=== PATIENT | female | born 1940 | race Caucasian/White ===

== ENCOUNTER 2017-10-25 10:17 | Emergency (ER) | payer OTHER ==
[~2017-10-25] VITALS: Ht 170.2 cm; Wt 73.0 kg
[2017-10-25 10:20] VITALS: BP 151/69; PULSE 52; RESP 14; TEMP 99; O2SAT 99
[2017-10-25] MEDS ORDERED: NIAC500T5 PO (10:44)
[2017-10-25] MEDS ORDERED: BIOTCAP PO (10:44)
[2017-10-25] MEDS ORDERED: PLAQ200T PO (10:44)
[2017-10-25] MEDS ORDERED: PRAV40TA2 PO (10:44)
[2017-10-25] MEDS ORDERED: TOPR50TA PO (10:44)
[2017-10-25] MEDS ORDERED: CALC1TAB34 PO (10:44)
[2017-10-25] MEDS ORDERED: LEVO25TA4 PO (10:44)
[2017-10-25] MEDS ORDERED: PRED5TAB PO (10:44)
[2017-10-25] MEDS ORDERED: ASPI-516 CHEW (10:44)
[2017-10-25] MEDS ORDERED: FISH OIL PO (10:44)
--- NOTE | 2017-10-25 11:13 | PD ---
HPI Chief Complaint: GI Complaint Time Seen by Provider: 11:00 Travel History International Travel<30 days: No Contact w/Intl Traveler<30days: No Traveled to known affect area: No History of Present Illness HPI 77 year old female presents to the emergency department for evaluation of constipation. Patient states her last normal BM was 10/06. She has had small bowel movements since, but states they are not normal for her. She does report some mild bright red bleeding, but states this is from her hemorrhoid and is not new for her. Patient states she'll have intermittent upper abdominal pain. She denies any pain at this time. She denies any nausea or vomiting. Patient reports history of bladder left, but no other abdominal surgeries. Patient has tried MiraLAX, took laxative and she did an enema yesterday without relief. Patient denies any history of this. She states she is always had some mild constipation, but never like this. [place] is from [place]. Moderate severity. No exacerbating or alleviating factors. PFSH Past Medical History High Cholesterol: Yes Diminished Hearing: No Thyroid Disease: Yes (HYPOTHYROIDISM ) Menopausal: Yes Past Surgical History Genitourinary Surgery: Yes (URINARY BLADDER ) Social History Alcohol Use: No Tobacco Use: No Substance Use: No Allergies-Medications (Allergen,Severity, Reaction): Coded Allergies: No Known Allergies (Unverified , 10/25/17) Reported Meds & Prescriptions Reported Meds & Active Scripts Active Golytely 236 gm (Polyethylene Glycol/Electrolytes) 4,000 Ml Soln 4,000 Ml PO ONCE Reported Biotin 5 Mg Cap 5 Mg PO DAILY Toprol XL (Metoprolol Succinate) 50 Mg Tab 50 Mg PO DAILY Pravastatin 40 Mg Tab 40 Mg PO DAILY Niacin 500 Mg Tab 500 Mg PO DAILY Levothyroxine (Levothyroxine Sodium) 25 Mcg Tab 25 Mcg PO DAILY [Fish Oil ] 1,000 Mg PO DAILY Caltrate 600+D Plus Minerals (Calcium Carbonate-Vitamin D W/Minerals) 600-800 Mg -Unit Tab 1 Tab PO BID Aspirin 81 Mg Chew 81 Mg CHEW DAILY Prednisone 5 Mg Tab 5 Mg PO DAILY Plaquenil (Hydroxychloroquine Sulfate) 200 Mg Tab 200 Mg PO DAILY Take with food Review of Systems Except as stated in HPI: all other systems reviewed are Neg Physical Exam Narrative GENERAL: Well-nourished, well-developed female patient, afebrile. SKIN: Focused skin assessment warm/dry. HEAD: Normocephalic. Atraumatic. EYES: No scleral icterus. No injection or drainage. NECK: Supple, trachea midline. No JVD or lymphadenopathy. CARDIOVASCULAR: Regular rate and rhythm without murmurs, gallops, or rubs. RESPIRATORY: Breath sounds equal bilaterally. No accessory muscle use. Lungs sounds are clear to auscultation. GASTROINTESTINAL: Abdomen soft, non-tender, nondistended. MUSCULOSKELETAL: No cyanosis, or edema. BACK: Nontender without obvious deformity. No CVA tenderness. RECTAL EXAM: No masses or tenderness. No stool in rectal vault, no evidence of fecal impaction. There is a small amount my finger after rectal exam which was Hemoccult negative. This exam was done with RN at bedside. Data Data Last Documented VS Vital Signs Date Time Temp Pulse Resp B/P (MAP) Pulse Ox O2 Delivery O2 Flow Rate FiO2 10/25/17 12:29 (96) 100 Room Air 10/25/17 12:29 51 15 10/25/17 10:20 99.0 Orders Orders Complete Blood Count With Diff (10/25/17 11:14) Comprehensive Metabolic Panel (10/25/17 11:14) Lipase (10/25/17 11:14) Prothrombin Time / Inr (Pt) (10/25/17 11:14) Act Partial Throm Time (Ptt) (10/25/17 11:14) Urinalysis - C+S If Indicated (10/25/17 11:14) Ct Abd/Pel W Iv Contrast(Rout) (10/25/17 11:14) Iv Access Insert/Monitor (10/25/17 11:14) Ecg Monitoring (10/25/17 11:14) Oximetry (10/25/17 11:14) Sodium Chloride 0.9% Flush (Ns Flush) (10/25/17 11:15) Sodium Chlor 0.9% 1000 Ml Inj (Ns 1000 M (10/25/17 13:15) Iodixanol 320 Inj (Rad Ct) (Visipaque 32 (10/25/17 13:22) Labs Laboratory Tests Test 10/25/17 11:20 White Blood Count 5.3 TH/MM3 Red Blood Count 3.72 MIL/MM3 Hemoglobin 9.5 GM/DL Hematocrit 29.2 % Mean Corpuscular Volume 78.6 FL Mean Corpuscular Hemoglobin 25.4 PG Mean Corpuscular Hemoglobin Concent 32.3 % Red Cell Distribution Width 16.8 % Platelet Count 216 TH/MM3 Mean Platelet Volume 7.8 FL Neutrophils (%) (Auto) 53.9 % Lymphocytes (%) (Auto) 30.5 % Monocytes (%) (Auto) 13.9 % Eosinophils (%) (Auto) 1.2 % Basophils (%) (Auto) 0.5 % Neutrophils # (Auto) 2.9 TH/MM3 Lymphocytes # (Auto) 1.6 TH/MM3 Monocytes # (Auto) 0.7 TH/MM3 Eosinophils # (Auto) 0.1 TH/MM3 Basophils # (Auto) 0.0 TH/MM3 CBC Comment DIFF FINAL Differential Comment Prothrombin Time 11.2 SEC Prothromb Time International Ratio 1.1 RATIO Activated Partial Thromboplast Time 24.0 SEC Blood Urea Nitrogen 19 MG/DL Creatinine 1.36 MG/DL Random Glucose 89 MG/DL Total Protein 6.2 GM/DL Albumin 3.4 GM/DL Calcium Level 9.0 MG/DL Alkaline Phosphatase 55 U/L Aspartate Amino Transf (AST/SGOT) 17 U/L Alanine Aminotransferase (ALT/SGPT) 15 U/L Total Bilirubin 0.4 MG/DL Sodium Level 141 MEQ/L Potassium Level 3.6 MEQ/L Chloride Level 105 MEQ/L Carbon Dioxide Level 28.7 MEQ/L Anion Gap 7 MEQ/L Estimat Glomerular Filtration Rate 38 ML/MIN Lipase 188 U/L MDM Medical Decision Making Medical Screen Exam Complete: Yes Emergency Medical Condition: Yes Medical Record Reviewed: Yes Interpretation(s) ct abdomen/pelvis - CONCLUSION: 1. Stool filled, moderately dilated colon suggesting constipation. 2. 1.7 cm low attenuation lesion within the liver most compatible with a simple cyst. 3. Degenerative changes within the spine. Differential Diagnosis Constipation versus bowel obstruction versus mass versus diverticulitis Narrative Course 77-year-old female presents to the emergency department for evaluation of constipation. She reports a last normal bowel movement was on October 06. She denies any history of this. Rectal exam shows no evidence of fecal impaction. IV access established. CBC, CMP, lipase, PTT, PT/INR, UA, CT abdomen/pelvis with IV contrast are ordered and pending. CBC shows anemia hemoglobin 9.5, hematocrit 29.2. CMP shows elevated BUN and creatinine 19/1.36. Lipase is 188. Coags show no acute abnormality. CT abdomen/pelvis shows stool filled, moderately dilated colon suggesting constipation; 1.7 cm low attenuation lesion within the liver most compatible with a simple cyst; Degenerative changes within the spine. Patient will be discharged home prescription for GoLYTELY. I did discuss the case with my attending physician, Dr. Mota, who presents complaining and disposition. Patient is to follow up with herprimary care physician. She is to return here for any acute worsening of symptoms. The patient was discharged in stable condition with instructions, including return instructions and follow up instructions. [facility] Point of Care Internal Pos. & Neg. Controls: Passed Fecal Specimen Occult Blood: Negative Diagnosis Primary Impression: Constipation Qualified Codes: K59.00 - Constipation, unspecified Referrals: Primary Care Physician call for appointment Patient Instructions: Constipation (ED), General Instructions Additional Instructions: Take GoLYTELY as directed. Follow-up with your primary care physician. Return to the emergency department for any acute worsening of symptoms. Med/Other Pt SpecificInfo: Prescription(s) given Scripts Peg-Electrolytes (Golytely 236 gm) 4,000 Ml Soln 4000 ML PO ONCE for Bowel Cleanser, #1 CONTAINER 0 Refills Prov: Florence Montero 10/25/17 Disposition: 01 DISCHARGE HOME Condition: Stable Florence Montero Oct 25, 2017 11:13
[2017-10-25] MEDS ORDERED: SODIUM CHLORIDE 0.9% FLUSH 10 ML FLUSH IV FLUSH PRN (11:15)
[2017-10-25 11:29] LABS: AUTOMATED NEUTROPHIL # 2.9 TH/MM3 (1.8-7.7); BASOPHIL % 0.5 % (0.0-2.0); EOSINOPHIL # 0.1 TH/MM3 (0-0.4); EOSINOPHIL % 1.2 % (0.0-4.0); HEMATOCRIT 29.2 % (35.0-46.0); HEMO FLAGS DIFF FINAL; LYMPH % 30.5 % (9.0-44.0); LYMPHOCYTE # 1.6 TH/MM3 (1.0-4.8); MEAN CELL VOLUME 78.6 FL (80.0-100.0); MEAN CORPUSCULAR HEMOGLOBIN 25.4 PG (27.0-34.0); MEAN CORPUSCULAR HGB CONC 32.3 % (32.0-36.0); MONO % 13.9 % (0.0-8.0); NEUT % 53.9 % (16.0-70.0); PLATELET COUNT 216 TH/MM3 (150-450); RED BLOOD COUNT 3.72 MIL/MM3 (4.00-5.30); RED CELL DISTRIBUTION WIDTH 16.8 % (11.6-17.2); WHITE BLOOD COUNT 5.3 TH/MM3 (4.0-11.0)
[2017-10-25 11:41] LABS: ANION GAP 7 MEQ/L (5-15); AST (GOT) 17 U/L (15-37); BICARBONATE 28.7 MEQ/L (21.0-32.0); BLOOD UREA NITROGEN 19 MG/DL (7-18); CHLORIDE 105 MEQ/L (98-107); GLOMERULAR FILTRATION RATE 38 ML/MIN (>89); INTERNATIONAL NORMALIZED RATIO 1.1 RATIO; POTASSIUM 3.6 MEQ/L (3.5-5.1); PROTHROMBIN TIME - PATIENT 11.2 SEC (9.8-11.6); SODIUM (NA) 141 MEQ/L (136-145)
[2017-10-25 11:42] LABS: ALT (GPT) 15 U/L (10-53)
[2017-10-25 11:44] LABS: ALKALINE PHOSPHATASE 55 U/L (45-117); TOTAL BILIRUBIN ADULT 0.4 MG/DL (0.2-1.0)
[2017-10-25 12:29] VITALS: BP 129/68; PULSE 51; RESP 15; O2SAT 100
[2017-10-25] MEDS ORDERED: SODIUM CHLOR 0.9% 1000 ML INJ 1,000 ML IV ONE (13:15)
[2017-10-25] MEDS ORDERED: IODIXANOL 320 MG/ML 10 ML VIAL (for Rad CT) IVCONTRAST ONE (13:22)
--- NOTE | 2017-10-25 13:39 | RADRPT ---
EXAM DATE/TIME: 10/25/2017 13:13 [facility] COMPARISON: No previous studies available for comparison. INDICATIONS : Patient complains of constipation for 2 weeks IV CONTRAST: 50 cc Visipaque (iodixanol) IV ORAL CONTRAST: No oral contrast ingested. RADIATION DOSE: 15.28 CTDIvol (mGy) MEDICAL HISTORY : Hypothyroidism. SURGICAL HISTORY : bladder surgery ENCOUNTER: Initial ACUITY: 2 weeks PAIN SCALE: 4/10 LOCATION: Diffuse abdomen TECHNIQUE: Volumetric scanning of the abdomen and pelvis was performed. Using automated exposure control and ad justment of the mA and/or kV according to patient size, radiation dose was kept as low as reasonably achievable to obtain optimal diagnostic quality images. DICOM format image data is available electro nically for review and comparison. FINDINGS: There is COPD changes in the lung bases. There is a large hiatal hernia. Examination of the liver demonstrates a 1.7 cm low attenuation lesion most compatible with a simple c yst. The spleen, pancreas, adrenal glands and kidneys is within normal limits. The abdominal aorta is normal in caliber. There is no retroperitoneal lymphadenopathy. The exam demon strates a moderate amount of stool within the colon. Loops of small and large bowel in the upper abdo men are otherwise unremarkable. There is no free fluid within the pelvis. No iliac or inguinal adenopathy is present. Again noted is stool diffusely throughout the colon. Exam would suggest probable constipation. The reproductive organs are intact. There degenerative changes throughout the spine. CONCLUSION: 1. Stool filled, moderately dilated colon suggesting constipation. 2. 1.7 cm low attenuation lesion within the liver most compatible with a simple cyst. 3. Degenerative changes within the spine. Klaus Spann MD on October 25, 2017 at 13:34 Board Certified Radiologist. This report was verified electronically.
[2017-10-25] MEDS ORDERED: COLY4000S PO (13:46)
[2017-10-25 14:37] LABS: BLOOD, URINE NEG (NEG); COMMENT (UR) CULT NOT INDICATED; CULTURE IF INDICATED CULT NOT INDICATED; GLUCOSE,URINE NEG (NEG); HYALINE CAST, URINE 1 /lpf (RARE); KETONE, URINE NEG (NEG); MUCUS URINE FEW /lpf (OCC); NITRITE,URINE NEG (NEG); SQUAMOUS EPITHELIAL CELL URINE <1 /hpf (0-5); URINE COLOR LIGHT-YELLOW (YELLW/STRAW)
[2017-10-29] MEDS ORDERED: FISH100020 PO (11:29)
== END 2017-10-25 14:39 | disposition home or self-care (01) ==
LOC: NEPE 10:17
DX: K59.00 Constipation, unspecified (principal); E03.9 Hypothyroidism, unspecified; E78.00 Pure hypercholesterolemia, unspecified; R10.10 Upper abdominal pain, unspecified
CPT/HCPCS: 74177; 80053; 81001; 83690; 85025; 85610; 85730; 96360; 99285; J7030; Q9967